=== PATIENT | female | born 1940 | race African-American/Black ===

== ENCOUNTER 2020-10-09 11:51 | Emergency (ER) | payer MEDICARE ==
[~2020-10-09] VITALS: Ht 160 cm; Wt 62.7 kg
[2020-10-09 12:00] VITALS: BP 178/74
--- NOTE | 2020-10-09 12:35 | PHYS DOC ---
Past Medical History Additional Past Medical Histor: shingles Past Surgical History: Other Smoking Status: Never Smoker Alcohol Use: None Drug Use: None General Adult EDM: Chief Complaint: SHINGLES HPI: HPI: Patient is a 80 year old female who presents with a rash to her left side beneath axilla. Patient states she believes it to be shingles, as it feels the same as her previous shingles outbreak. She states the pain started about 2 days ago, and has gotten worse since onset. She rates her pain now as a 9.5 out of 10 describes it as burning and itching. At home, she has taken [id number] p.o. Benadryl without symptom relief. Her previous outbreak of shingles was greater than 10 years ago and states it was on the left side of her face from her forehead down to her chin. She has an additional complaint of a itchy "bump" on her left elbow. She states it has been there for weeks its more itching and uncomfortable than painful. She believed it to be a bite at onset, but it has been persistent. She states it has not changed in size since it first appeared. She says she has used an [id number] "topical cream." She is unsure of what medication is in the cream. Patient denies headache, chest pain, palpitations, shortness of breath, cough, abdominal pain, NVD. Review of Systems: Review of Systems: ROS negative except as mentioned in HPI. Heart Score: C/O Chest Pain: No Risk Factors: Risk Factors: DM, Current or recent (<one month) smoker, HTN, HLP, family history of CAD, obesity. Risk Scores: Score 0 - 3: 2.5% MACE over next 6 weeks - Discharge Home Score 4 - 6: 20.3% MACE over next 6 weeks - Admit for Clinical Observation Score 7 - 10: 72.7% MACE over next 6 weeks - Early Invasive Strategies Physical Exam: PE: Constitutional: Well developed, well nourished, non-toxic appearance. [] HENT: Normocephalic, atraumatic, bilateral external ears normal, nose normal. [] Eyes: Conjunctiva normal, no discharge. [] Cardiovascular:Heart rate regular rhythm, no murmur [] Lungs & Thorax: Bilateral breath sounds clear to auscultation [] Skin: Maculopapular erythematous rash without vesicles on the posterior lateral aspect of the left side inferior to the axilla. Significant tenderness. There is also a raised slightly erythematous nodule on the left upper extremity distal to the olecranon. Nontender. Skin is otherwise warm, dry. [] Back: No bony tenderness, no CVA tenderness. [] Extremities: No tenderness, no cyanosis, no clubbing, ROM intact, no edema. [] Neurologic: Alert and oriented X 3, normal motor function, no focal deficits noted. [] Current Patient Data: Vital Signs: Vital Signs Date Time Temp Pulse Resp B/P (MAP) Pulse Ox O2 Delivery O2 Flow Rate FiO2 10/09/20 12:00 98.5 75 18 178/74 100 Room Air 98.5 EKG: EKG: [] Radiology/Procedures: Radiology/Procedures: [] Course & Med Decision Making: Course & Med Decision Making Pertinent Labs and Imaging studies reviewed. (See chart for details) 12:55 Patient has had topical lidocaine patch for approximately 10 to 15 minutes. She states "the patch is doing nothing." She was given a dose of naproxen, she has not tried anything [id number] at home thus far. 13:40 - after taking naproxen, patient says her pain is improved. She is comfortable going home. Acyclovir versus valacyclovir discussed with patient. Patient prefers valacyclovir to take less pills per day. Festus Disclaimer: Festus Disclaimer: This electronic medical record was generated, in whole or in part, using a voice recognition dictation system. Departure Departure Impression: Primary Impression: Shingles Additional Impression: Nodule of skin of upper extremity Disposition: 01 HOME / SELF CARE / HOMELESS Condition: STABLE Patient Instructions: Shingles, [id number] Additional Instructions: You were provided with an antiviral, steroid, and a pain medication that should improve your symptoms from the shingles outbreak. You may also use topical pain relief patches and/or naproxen [id number] for breakthrough pain. If the rash worsens or your symptoms do not improve, please return to the emergency department. Apply topical hydrocortisone cream to the nodule on your elbow daily. If no improvement, see your primary care provider for further evaluation. Scripts Prednisone (PREDNISONE ) 10 Mg Tablet 10 MG PO UD for PREDNISONE TAPER, #39 TAB 0 Refills Take 3 tablets by mouth twice a day for 3 days, then take 2 tablets by mouth twice a day for 3 days, then take 1 tablet by mouth twice a day for 3 days, then take 1 tablet by mouth daily x 3 days, then stop. Prov: MARCELLE CAT 10/09/20 Gabapentin (GABAPENTIN ) 300 Mg Capsule 300 MG PO TID for NEUROGENIC PAIN MDD 1800, #30 CAP Take 1 tablet by mouth 3 times a day for postherpetic pain. If needed, you can take a maximum of 5 tablets total per day. Prov: MARCELLE CAT 10/09/20 Valacyclovir Hcl (VALACYCLOVIR) 1,000 Mg Tablet 1 TAB PO TID, #21 TAB Take 1 tablet by mouth 3 times a day for 7 days. Prov: MARCELLE CAT 10/09/20 MARCELLE CAT Oct 09, 2020 12:35
[2020-10-09] MEDS ORDERED: LIDOCAINE (700MG/PATCH) PATCH. TD ONE (12:36)
[2020-10-09] MEDS ORDERED: NAPROXEN 500 MG TABLET PO ONE (13:00)
[2020-10-09] MEDS ORDERED: PRED-220 PO ×2 (13:23→13:36)
[2020-10-09] MEDS ORDERED: GABA300C18 PO ×2 (13:23→13:36)
[2020-10-09] MEDS ORDERED: VALA10008 PO ×2 (13:23→13:36)
== END 2020-10-09 14:00 | disposition home or self-care (01) ==
LOC: ER 11:51
DX: B02.9 Zoster without complications (principal); R22.32 Localized swelling, mass and lump, left upper limb
CPT/HCPCS: 99283